=== PATIENT | male | born 1955 | race Caucasian/White ===

== ENCOUNTER 2024-02-26 22:37 | Outpatient (REF) | payer BC, SELFPAY | END 2024-02-26 22:38 | disposition home or self-care (01) | LOC: LBN 22:37 | PROVIDERS: Visit Provider Physician Assistant | DX: L98.9 Disorder of the skin and subcutaneous tissue, unspecified (principal); R68.89 Other general symptoms and signs; J32.9 Chronic sinusitis, unspecified | CPT/HCPCS: 87070; 87205 ==